=== PATIENT | female | born 1980 | race Caucasian/White ===

== ENCOUNTER 2020-06-22 14:26 | Emergency (ER) | payer OTHER, SELFPAY ==
--- NOTE | 2020-06-22 15:29 | RAD ---
EXAM: XR Knee Lt 4 View STANDARD PROVIDED CLINICAL HISTORY: Trauma FINDINGS: There is no evidence for fracture or other acute osseous abnormality. Alignment appears anatomic. Connie nt spaces appear preserved. Osteophyte formation is seen about the medial femorotibial joint. There is a focal area of nonaggressive appearing radiolucency with associated ring and arc calcifications i n the proximal fibula, compatible with low-grade chondroid lesion. IMPRESSION: No evidence for an acute osseous abnormality. If there is persistent clinical concern, conservative m anagement and follow-up imaging advised.
--- NOTE | 2020-06-22 15:29 | RAD ---
LEFT TIBIA AND FIBULA: 06/22/20 HISTORY: Trauma. No evidence of fracture. Benign appearing sclerosis at the fibular head. Minimal spurring at the knee joint. IMPRESSION: No acute findings. POS: AH
== END 2020-06-22 19:00 | disposition home or self-care (01) ==
LOC: MADERS 14:26
DX: S83.92XA Sprain of unspecified site of left knee, initial encounter (principal); S86.912A Strain of unspecified muscle(s) and tendon(s) at lower leg level, left leg, initial encounter; F41.9 Anxiety disorder, unspecified; F32.9 Major depressive disorder, single episode, unspecified; Z79.84 Long term (current) use of oral hypoglycemic drugs; Z79.899 Other long term (current) drug therapy; V29.88XA Motorcycle rider (driver) (passenger) injured in other specified transport accidents, initial encounter